=== PATIENT | female | born 1990 | race Caucasian/White ===

== ENCOUNTER 2019-02-20 20:47 | Emergency (ER) | payer OTHER ==
[~2019-02-20] VITALS: Ht 162.6 cm; Wt 98.7 kg
[~2019-02-20 20:47] MED LIST: ACET325T33 PO; CALC600T PO; FAMO-96 PO; FOLI0.4T2 PO; HYDR-4011 PO; MAG-19 PO; ONDA4TAB14 PO; PREN-39 PO
[2019-02-20 20:50] VITALS: Ht 162.6 cm; Wt 98.7 kg
[2019-02-20] MEDS ORDERED: FAMOTIDINE 20 MG TAB PO STA (21:07)
[2019-02-20] MEDS ORDERED: ONDANSETRON (ODT) 4 MG TAB ODT STA (21:07)
[2019-02-20] MEDS ORDERED: LIDOCAINE/MYLANTA 40 ML BTL PO STA (21:07)
[2019-02-20] MEDS ORDERED: SOD CHLORIDE 0.9% 1,000 ML IV ONE (22:00)
[2019-02-20 23:40] VITALS: BP 132/75; PULSE 59; RESP 18
== END 2019-02-20 23:45 | disposition home or self-care (01) ==
LOC: FTE 20:47
DX: R10.84 Generalized abdominal pain (principal)
CPT/HCPCS: 36415; 76705; 80053; 81001; 81025; 83690; 85025; 96360; J7030; Z7502; Z7610